=== PATIENT | female | born 1965 ===

== ENCOUNTER 2017-08-03 06:18 | Outpatient (RCR) | payer OTHER ==
[~2017-08-03] VITALS: Ht 30.5 cm; Wt 0.5 kg
[2017-08-03] MEDS ORDERED: Methohexital Sodium Syr 100mg/10ml IVP ONE (06:19)
[2017-08-03] MEDS ORDERED: Succinylcholine 20mg/ml 10ml vial ONE (06:19)
[2017-08-03] MEDS ORDERED: Midazolam 2mg/2ml Inj ONE (06:19)
[2017-08-03] MEDS ORDERED: NS 500ML ONE (06:19)
[2017-08-03] MEDS ORDERED: Sodium Chloride 500ML 500 ML IV ONE (09:22)
[2017-08-05] MEDS ORDERED: Midazolam 2mg/2ml Inj ONE (06:00)
[2017-08-05] MEDS ORDERED: Methohexital Sodium Syr 100mg/10ml IVP ONE (06:00)
[2017-08-05] MEDS ORDERED: Succinylcholine 20mg/ml 10ml vial ONE (06:00)
[2017-08-05 08:39] VITALS: BP 109/62
[2017-08-05] MEDS ORDERED: Sodium Chloride 500ML 500 ML IV ONE (08:52)
[2017-08-05 08:55] VITALS: BP 104/52
[2017-08-05 09:00] VITALS: BP 105/56
[2017-08-05 09:05] VITALS: BP 105/50
[2017-08-05 09:10] VITALS: BP 106/54
[2017-08-07] MEDS ORDERED: Midazolam 2mg/2ml Inj ONE (08:00)
[2017-08-07] MEDS ORDERED: NS 500ML ONE (08:00)
[2017-08-07] MEDS ORDERED: Methohexital Sodium Syr 100mg/10ml IVP ONE (08:00)
[2017-08-07] MEDS ORDERED: Succinylcholine 20mg/ml 10ml vial ONE (08:00)
[2017-08-07 09:34] VITALS: BP 113/69
[2017-08-07] MEDS ORDERED: Sodium Chloride 500ML 500 ML IV ONE (09:53)
[2017-08-07 09:55] VITALS: BP 104/50
[2017-08-07 10:00] VITALS: BP 97/48
[2017-08-07 10:05] VITALS: BP 105/52
[2017-08-07 10:10] VITALS: BP 100/50
[2017-08-07 10:15] VITALS: BP 111/47
[2017-08-12] MEDS ORDERED: Midazolam 2mg/2ml Inj ONE (08:00)
[2017-08-12] MEDS ORDERED: NS 500ML ONE (08:00)
[2017-08-12] MEDS ORDERED: Methohexital Sodium Syr 100mg/10ml IVP ONE (08:00)
[2017-08-12] MEDS ORDERED: Succinylcholine 20mg/ml 10ml vial ONE (08:00)
[2017-08-12] MEDS ORDERED: Sodium Chloride 500ML 500 ML IV ONE (09:53)
[2017-08-12] MEDS ORDERED: Atropine Sulfate 0.4mg/ml inj IVP PRN (09:53)
[2017-08-14] MEDS ORDERED: Methohexital Sodium Syr 100mg/10ml IVP ONE (07:00)
[2017-08-14] MEDS ORDERED: Succinylcholine 20mg/ml 10ml vial ONE (07:00)
[2017-08-14] MEDS ORDERED: NS 500ML ONE (07:00)
[2017-08-14] MEDS ORDERED: Midazolam 2mg/2ml Inj ONE (07:00)
[2017-08-14 08:40] VITALS: BP 128/78
[2017-08-14] MEDS ORDERED: Atropine Sulfate 0.4mg/ml inj IVP PRN (08:53)
[2017-08-14] MEDS ORDERED: Sodium Chloride 500ML 500 ML IV ONE (08:53)
[2017-08-14 08:55] VITALS: BP 114/60
[2017-08-14 09:00] VITALS: BP 113/61
[2017-08-14 09:05] VITALS: BP 112/62
[2017-08-14 09:15] VITALS: BP 110/64
== END 2017-08-16 | disposition home or self-care (01) ==
LOC: ECT 06:18
DX: F25.1 Schizoaffective disorder, depressive type (principal)
CPT/HCPCS: 90870; J0330; J2250; J7040

== ENCOUNTER 2017-08-19 06:33 | Outpatient (RCR) | payer OTHER ==
[~2017-08-19] VITALS: Ht 162.6 cm; Wt 65.3 kg
[2017-08-19] MEDS ORDERED: NS 500ML ONE ×2 (06:34)
[2017-08-19] MEDS ORDERED: Midazolam 2mg/2ml Inj ONE ×2 (06:34)
[2017-08-19] MEDS ORDERED: Methohexital Sodium Syr 100mg/10ml IVP ONE ×2 (06:34)
[2017-08-19] MEDS ORDERED: Succinylcholine 20mg/ml 10ml vial ONE ×2 (06:34)
[2017-08-19 08:42] VITALS: BP 111/76
[2017-08-19] MEDS ORDERED: Sodium Chloride 500ML 500 ML IV ONE (09:03)
[2017-08-19 09:05] VITALS: BP 114/56
[2017-08-19 09:10] VITALS: BP 109/61
[2017-08-19 09:15] VITALS: BP 116/52
[2017-08-19 09:20] VITALS: BP 107/53
[2017-08-21] MEDS ORDERED: Succinylcholine 20mg/ml 10ml vial ONE (08:00)
[2017-08-21] MEDS ORDERED: Midazolam 2mg/2ml Inj ONE (08:00)
[2017-08-21] MEDS ORDERED: NS 500ML ONE (08:00)
[2017-08-21] MEDS ORDERED: Methohexital Sodium Syr 100mg/10ml IVP ONE (08:00)
[2017-08-21 09:11] VITALS: BP 114/77
[2017-08-21 09:30] VITALS: BP 113/61
[2017-08-21 09:35] VITALS: BP 101/54
[2017-08-21 09:40] VITALS: BP 109/54
[2017-08-21 09:45] VITALS: BP 109/51
[2017-08-21] MEDS ORDERED: Sodium Chloride 500ML 500 ML IV ONE (16:30)
[2017-08-24] MEDS ORDERED: Succinylcholine 20mg/ml 10ml vial ONE (07:00)
[2017-08-24] MEDS ORDERED: Midazolam 2mg/2ml Inj ONE (07:00)
[2017-08-24] MEDS ORDERED: Methohexital Sodium Syr 100mg/10ml IVP ONE (07:00)
[2017-08-24] MEDS ORDERED: NS 500ML ONE (07:00)
[2017-08-24 09:32] VITALS: BP 106/70
[2017-08-24 09:52] VITALS: BP 110/56
[2017-08-24] MEDS ORDERED: Atropine Sulfate 0.4mg/ml inj IVP PRN (09:52)
[2017-08-24] MEDS ORDERED: Sodium Chloride 500ML 500 ML IV ONE (09:52)
[2017-08-24 09:57] VITALS: BP 108/58
[2017-08-24 10:02] VITALS: BP 108/57
[2017-08-24 10:07] VITALS: BP 110/56
[2017-08-26] MEDS ORDERED: Methohexital Sodium Syr 100mg/10ml IVP ONE (07:00)
[2017-08-26] MEDS ORDERED: Succinylcholine 20mg/ml 10ml vial ONE (07:00)
[2017-08-26] MEDS ORDERED: Midazolam 2mg/2ml Inj ONE (07:00)
[2017-08-26] MEDS ORDERED: NS 500ML ONE (07:00)
[2017-08-26 09:39] VITALS: BP 109/73
[2017-08-26] MEDS ORDERED: Atropine Sulfate 0.4mg/ml inj IVP PRN (10:03)
[2017-08-26] MEDS ORDERED: Sodium Chloride 500ML 500 ML IV ONE (10:03)
[2017-08-26 10:05] VITALS: BP 122/69
[2017-08-26 10:10] VITALS: BP 119/59
[2017-08-26 10:15] VITALS: BP 122/64
[2017-08-26 10:20] VITALS: BP 126/58
[2017-08-28] MEDS ORDERED: NS 500ML ONE (08:00)
[2017-08-28] MEDS ORDERED: Methohexital Sodium Syr 100mg/10ml IVP ONE (08:00)
[2017-08-28] MEDS ORDERED: Succinylcholine 20mg/ml 10ml vial ONE (08:00)
[2017-08-28] MEDS ORDERED: Midazolam 2mg/2ml Inj ONE (08:00)
[2017-08-28 09:07] VITALS: BP 108/66
[2017-08-28] MEDS ORDERED: Sodium Chloride 500ML 500 ML IV ONE (09:19)
[2017-08-28 09:20] VITALS: BP 109/54
[2017-08-28 09:25] VITALS: BP 109/59
[2017-08-28 09:30] VITALS: BP 103/59
[2017-08-28 09:35] VITALS: BP 112/52
[2017-08-31] MEDS ORDERED: Midazolam 2mg/2ml Inj ONE (08:00)
[2017-08-31] MEDS ORDERED: Methohexital Sodium Syr 100mg/10ml IVP ONE (08:00)
[2017-08-31] MEDS ORDERED: Succinylcholine 20mg/ml 10ml vial ONE (08:00)
[2017-08-31] MEDS ORDERED: NS 500ML ONE (08:00)
[2017-08-31 09:20] VITALS: BP 120/64
[2017-08-31] MEDS ORDERED: Sodium Chloride 500ML 500 ML IV ONE (09:36)
[2017-08-31 10:40] VITALS: BP 119/63
[2017-09-02] MEDS ORDERED: Succinylcholine 20mg/ml 10ml vial ONE (09:00)
[2017-09-02] MEDS ORDERED: NS 500ML ONE (09:00)
[2017-09-02] MEDS ORDERED: Methohexital Sodium Syr 100mg/10ml IVP ONE (09:00)
[2017-09-02] MEDS ORDERED: Midazolam 2mg/2ml Inj ONE (09:00)
[2017-09-02] MEDS ORDERED: Sodium Chloride 500ML 500 ML IV ONE (09:07)
[2017-09-02 09:20] VITALS: BP 129/75
[2017-09-02 09:40] VITALS: BP 119/63
[2017-09-02 09:45] VITALS: BP 120/54
[2017-09-02 09:50] VITALS: BP 114/60
[2017-09-02 09:55] VITALS: BP 119/53
[2017-09-03] MEDS ORDERED: Sodium Chloride 500ML 500 ML IV ONE (09:17)
[2017-09-04 08:59] VITALS: BP 98/59
[2017-09-04] MEDS ORDERED: Midazolam 2mg/2ml Inj ONE (09:00)
[2017-09-04] MEDS ORDERED: Methohexital Sodium Syr 100mg/10ml IVP ONE (09:00)
[2017-09-04] MEDS ORDERED: NS 500ML ONE (09:00)
[2017-09-04] MEDS ORDERED: Succinylcholine 20mg/ml 10ml vial ONE (09:00)
[2017-09-04 09:10] VITALS: BP 101/48
[2017-09-04 09:15] VITALS: BP 102/48
[2017-09-04 09:20] VITALS: BP 84/52
[2017-09-04 09:25] VITALS: BP 106/65
[2017-09-07 09:25] VITALS: BP 114/71
[2017-09-07] MEDS ORDERED: Sodium Chloride 500ML 500 ML IV ONE (09:38)
[2017-09-07 09:40] VITALS: BP 119/52
[2017-09-07 09:45] VITALS: BP 106/48
[2017-09-07 09:50] VITALS: BP 107/67
[2017-09-07 09:55] VITALS: BP 108/55
[2017-09-07 10:00] VITALS: BP 112/57
[2017-09-09] MEDS ORDERED: Methohexital Sodium Syr 100mg/10ml IVP ONE (07:00)
[2017-09-09] MEDS ORDERED: Succinylcholine 20mg/ml 10ml vial ONE (07:00)
[2017-09-09] MEDS ORDERED: NS 500ML ONE (07:00)
[2017-09-09] MEDS ORDERED: Midazolam 2mg/2ml Inj ONE (07:00)
[2017-09-09 09:01] VITALS: BP 101/66
[2017-09-09 09:18] VITALS: BP 109/46
[2017-09-09] MEDS ORDERED: Sodium Chloride 500ML 500 ML IV ONE (09:18)
[2017-09-09 09:23] VITALS: BP 110/48
[2017-09-09 09:28] VITALS: BP 103/61
[2017-09-09 09:33] VITALS: BP 95/57
[2017-09-11] MEDS ORDERED: Methohexital Sodium Syr 100mg/10ml IVP ONE (07:00)
[2017-09-11] MEDS ORDERED: Succinylcholine 20mg/ml 10ml vial ONE (07:00)
[2017-09-11] MEDS ORDERED: Midazolam 2mg/2ml Inj ONE (07:00)
[2017-09-11] MEDS ORDERED: NS 500ML ONE (07:00)
[2017-09-11 09:39] VITALS: BP 104/65
[2017-09-11 09:55] VITALS: BP 111/65
[2017-09-11 10:00] VITALS: BP 108/61
[2017-09-11 10:05] VITALS: BP 107/62
[2017-09-11 10:10] VITALS: BP 108/58
[2017-09-11] MEDS ORDERED: Sodium Chloride 500ML 500 ML IV ONE (19:59)
== END 2017-09-16 | disposition home or self-care (01) ==
LOC: ECT 06:33
DX: F25.1 Schizoaffective disorder, depressive type (principal)
CPT/HCPCS: 90870; J0330; J2250; J7040

== ENCOUNTER 2018-05-03 09:18 | Outpatient (RCR) | payer OTHER ==
[~2018-05-03] VITALS: Ht 162.6 cm; Wt 74.8 kg
[2018-05-03 09:12] VITALS: BP 113/74
[2018-05-03] MEDS ORDERED: Methohexital Sodium Syr 100mg/10ml IVP ONE ×2 (09:19)
[2018-05-03] MEDS ORDERED: NS 500ML ONE ×2 (09:19)
[2018-05-03] MEDS ORDERED: Midazolam 2mg/2ml Inj ONE ×2 (09:19)
[2018-05-03] MEDS ORDERED: Succinylcholine 20mg/ml 10ml vial ONE ×2 (09:19)
[2018-05-03] MEDS ORDERED: Sodium Chloride 500ML 500 ML IV ONE (09:36)
[2018-05-03 09:40] VITALS: BP 120/59
[2018-05-03 09:45] VITALS: BP 115/68
[2018-05-03 09:50] VITALS: BP 107/54
[2018-05-03 09:55] VITALS: BP 109/69
[2018-05-03 13:07] VITALS: BP 114/53
[2018-05-05] MEDS ORDERED: Succinylcholine 20mg/ml 10ml vial ONE (07:00)
[2018-05-05] MEDS ORDERED: NS 500ML ONE (07:00)
[2018-05-05] MEDS ORDERED: Methohexital Sodium Syr 100mg/10ml IVP ONE (07:00)
[2018-05-05] MEDS ORDERED: Midazolam 2mg/2ml Inj ONE (07:00)
[2018-05-05 09:26] VITALS: BP 121/96
[2018-05-05] MEDS ORDERED: Sodium Chloride 500ML 500 ML IV ONE (09:41)
[2018-05-05 09:45] VITALS: BP 109/66
[2018-05-05 09:50] VITALS: BP 111/56
[2018-05-05 09:55] VITALS: BP 108/61
[2018-05-05 10:00] VITALS: BP 113/54
[2018-05-07 09:10] VITALS: BP 109/71
[2018-05-07] MEDS ORDERED: Sodium Chloride 500ML 500 ML IV ONE (09:39)
[2018-05-07 09:40] VITALS: BP 121/64
[2018-05-07 09:45] VITALS: BP 127/52
[2018-05-07 09:50] VITALS: BP 116/65
[2018-05-07 09:55] VITALS: BP 115/64
[2018-05-08] MEDS ORDERED: Sodium Chloride 500ML 500 ML IV ONE (09:39)
[2018-05-10] MEDS ORDERED: Succinylcholine 20mg/ml 10ml vial ONE (07:00)
[2018-05-10] MEDS ORDERED: NS 500ML ONE (07:00)
[2018-05-10] MEDS ORDERED: Methohexital Sodium Syr 100mg/10ml IVP ONE (07:00)
[2018-05-10] MEDS ORDERED: Midazolam 2mg/2ml Inj ONE (07:00)
[2018-05-10] MEDS ORDERED: Sodium Chloride 500ML 500 ML IV ONE (08:00)
[2018-05-10 08:55] VITALS: BP 109/69
[2018-05-10 09:00] VITALS: BP 109/67
[2018-05-10 09:05] VITALS: BP 94/62
[2018-05-10 09:10] VITALS: BP 101/41
[2018-05-12] MEDS ORDERED: Succinylcholine 20mg/ml 10ml vial ONE (07:00)
[2018-05-12] MEDS ORDERED: Methohexital Sodium Syr 100mg/10ml IVP ONE (07:00)
[2018-05-12] MEDS ORDERED: NS 500ML ONE (07:00)
[2018-05-12] MEDS ORDERED: Midazolam 2mg/2ml Inj ONE (07:00)
[2018-05-12 09:18] VITALS: BP 124/77
[2018-05-12] MEDS ORDERED: Sodium Chloride 500ML 500 ML IV ONE (09:33)
[2018-05-12 09:35] VITALS: BP 131/66
[2018-05-12 09:40] VITALS: BP 114/62
[2018-05-12 09:45] VITALS: BP 113/69
[2018-05-12 09:50] VITALS: BP 115/67
[2018-05-14] MEDS ORDERED: Methohexital Sodium Syr 100mg/10ml IVP ONE (06:00)
[2018-05-14] MEDS ORDERED: NS 500ML ONE (06:00)
[2018-05-14] MEDS ORDERED: Midazolam 2mg/2ml Inj ONE (06:00)
[2018-05-14] MEDS ORDERED: Succinylcholine 20mg/ml 10ml vial ONE (06:00)
[2018-05-14 09:33] VITALS: BP 107/65
[2018-05-14] MEDS ORDERED: Sodium Chloride 500ML 500 ML IV ONE (09:44)
[2018-05-14 09:45] VITALS: BP 99/50
[2018-05-14 09:50] VITALS: BP 110/72
[2018-05-14 09:55] VITALS: BP 109/75
[2018-05-14 10:00] VITALS: BP 122/72
== END 2018-05-16 | disposition home or self-care (01) ==
LOC: ECT 09:18
DX: F25.1 Schizoaffective disorder, depressive type (principal)
CPT/HCPCS: 90870; J0330; J2250; J7040

== ENCOUNTER 2018-05-17 06:01 | Outpatient (RCR) | payer OTHER ==
[~2018-05-17] VITALS: Ht 30.5 cm; Wt 0.5 kg
[2018-05-17] MEDS ORDERED: Midazolam 2mg/2ml Inj ONE ×3 (06:02)
[2018-05-17] MEDS ORDERED: NS 500ML ONE ×3 (06:02)
[2018-05-17] MEDS ORDERED: Methohexital Sodium Syr 100mg/10ml IVP ONE ×3 (06:02)
[2018-05-17] MEDS ORDERED: Succinylcholine 20mg/ml 10ml vial ONE ×3 (06:02)
[2018-05-17 09:05] VITALS: BP 120/74
[2018-05-17] MEDS ORDERED: Sodium Chloride 500ML 500 ML IV ONE (09:17)
[2018-05-17 09:20] VITALS: BP 122/47
[2018-05-17 09:25] VITALS: BP 109/74
[2018-05-17 09:30] VITALS: BP 122/60
[2018-05-17 09:35] VITALS: BP 123/96
[2018-05-19 09:06] VITALS: BP 109/64
[2018-05-19] MEDS ORDERED: Sodium Chloride 500ML 500 ML IV ONE (09:21)
[2018-05-19 09:25] VITALS: BP 102/88
[2018-05-19 09:30] VITALS: BP 108/41
[2018-05-19 09:35] VITALS: BP 96/64
[2018-05-19 10:40] VITALS: BP 109/52
[2018-05-19 11:30] VITALS: BP 109/52
[2018-05-21 08:54] VITALS: BP 96/62
[2018-05-21] MEDS ORDERED: Sodium Chloride 500ML 500 ML IV ONE (09:09)
[2018-05-21 09:10] VITALS: BP 125/96
[2018-05-21 09:15] VITALS: BP 126/35
[2018-05-21 09:20] VITALS: BP 140/106
[2018-05-21 09:25] VITALS: BP 109/47
[2018-05-24] MEDS ORDERED: Midazolam 2mg/2ml Inj ONE (08:00)
[2018-05-24] MEDS ORDERED: Succinylcholine 20mg/ml 10ml vial ONE (08:00)
[2018-05-24] MEDS ORDERED: NS 500ML ONE (08:00)
[2018-05-24] MEDS ORDERED: Methohexital Sodium Syr 100mg/10ml IVP ONE (08:00)
[2018-05-24 08:47] VITALS: BP 108/73
[2018-05-24] MEDS ORDERED: Sodium Chloride 500ML 500 ML IV ONE (09:03)
[2018-05-24 09:05] VITALS: BP 105/59
[2018-05-24 09:10] VITALS: BP 110/59
[2018-05-24 09:15] VITALS: BP 102/70
[2018-05-24 09:20] VITALS: BP 100/56
[2018-05-28] MEDS ORDERED: NS 500ML ONE (08:00)
[2018-05-28] MEDS ORDERED: Methohexital Sodium Syr 100mg/10ml IVP ONE (08:00)
[2018-05-28] MEDS ORDERED: Midazolam 2mg/2ml Inj ONE (08:00)
[2018-05-28] MEDS ORDERED: Succinylcholine 20mg/ml 10ml vial ONE (08:00)
[2018-05-28 09:32] VITALS: BP 119/77
[2018-05-28] MEDS ORDERED: Sodium Chloride 500ML 500 ML IV ONE (09:47)
[2018-05-28 09:50] VITALS: BP 122/55
[2018-05-28 09:55] VITALS: BP 121/66
[2018-05-28 10:00] VITALS: BP 112/75
[2018-05-28 10:05] VITALS: BP 102/68
== END 2018-06-16 | disposition home or self-care (01) ==
LOC: ECT 06:01
DX: F25.1 Schizoaffective disorder, depressive type (principal)
CPT/HCPCS: 90870; J0330; J2250; J7040